=== PATIENT | female | born 1995 ===

== ENCOUNTER 2017-12-02 14:31 | Emergency (ER) | payer OTHER ==
[2017-12-02 14:31] VITALS: BMI 21.1
[2017-12-02 14:38] VITALS: TEMP 98.8
--- NOTE | 2017-12-02 16:01 | RAD ---
HISTORY: CP COMPARISON: No prior. TECHNIQUE: Chest PA and lateral FINDINGS: LUNGS: No active pulmonary disease. PLEURA: No significant pleural effusion identified. No pneumothorax apparent. CARDIOVASCULAR: Normal. OSSEOUS STRUCTURES: No significant abnormalities. VISUALIZED UPPER ABDOMEN: Normal. OTHER FINDINGS: None. IMPRESSION: No active disease.
--- NOTE | 2017-12-02 16:34 | ED PDOC ---
HPI: Chest Pain Time Seen by Provider: 12/02/17 15:15 Chief Complaint (Nursing): Chest Pain Chief Complaint (Provider): Chest Pain History Per: Patient History/Exam Limitations: no limitations Onset/Duration Of Symptoms: Days (x1 week) Current Symptoms Are (Timing): Still Present Quality: "Pain" Associated Symptoms: Nausea Additional Complaint(s): 22 year old female with past medical history of hypertension presents to the emergency department complaining of intermittent chest pain x1 week. Patient is also complaining of a left sided headache associated with lightheadedness that has also been going on for 1 week. Of note: Patient had thyroid surgery 1 year ago at [facility] Past Medical History Reviewed: Historical Data, Nursing Documentation, Vital Signs Vital Signs: Last Vital Signs Temp 98.8 F 12/02/17 14:35 Pulse 72 12/02/17 18:02 Resp 20 12/02/17 14:35 BP 96/60 L 12/02/17 14:35 Pulse Ox 98 12/02/17 18:02 - Medical History PMH: Graves' Disease (had sx 2016), HTN, Hyperthyroidism (Goiter), Pneumonia Denies: Chronic Kidney Disease - Surgical History Other surgeries: Thyroid surgery - Family History Family History: States: Hypertension - Social History Current smoker - smoking cessation education provided: No Ex-Smoker (has not smoked in the last 12 months): No Alcohol: Social Drugs: Denies - Immunization History Hx Tetanus Toxoid Vaccination: No Hx Influenza Vaccination: No Hx Pneumococcal Vaccination: No - Home Medications Home Medications: Ambulatory Orders Medication Instructions Recorded Calcium Carbonate [Calcium] 500 mg PO BID 09/18/17 Cholecalciferol (Vitamin D3) 10,000 unit PO TID 09/18/17 [Vitamin D3] Levothyroxine [Levoxyl] 0.125 mg PO DAILY 09/18/17 Ibuprofen [Motrin] 600 mg PO Q6H PRN #20 tab 12/02/17 - Allergies Allergies/Adverse Reactions: Allergies Allergy/AdvReac Type Severity Reaction Status Date / Time acetaminophen [From Percocet] Allergy Mild RASH Verified 12/02/17 14:38 oxycodone [From Percocet] AdvReac RASH Verified 12/02/17 14:38 Review of Systems ROS Statement: Except As Marked, All Systems Reviewed And Found Negative Cardiovascular: Positive for: Chest Pain, Light Headedness Neurological: Positive for: Headache (left sided) Physical Exam - Reviewed Nursing Documentation Reviewed: Yes Vital Signs Reviewed: Yes - Physical Exam Appears: Positive for: Non-toxic, No Acute Distress Head Exam: Positive for: ATRAUMATIC, NORMAL INSPECTION, NORMOCEPHALIC Skin: Positive for: Normal Color, Warm, Dry. Negative for: Rash Eye Exam: Positive for: Normal appearance, EOMI, PERRL ENT: Positive for: Normal ENT Inspection. Negative for: Nasal Congestion, Tonsillar Exudate Neck: Positive for: Normal, Painless ROM, Supple Cardiovascular/Chest: Positive for: Regular Rate, Rhythm, Chest Non Tender. Negative for: Tachycardia Respiratory: Positive for: Normal Breath Sounds. Negative for: Rales, Rhonchi, Wheezing, Respiratory Distress Gastrointestinal/Abdominal: Positive for: Normal Exam, Bowel Sounds, Soft. Negative for: Tenderness, Mass, Guarding Back: Positive for: Normal Inspection. Negative for: L CVA Tenderness, R CVA Tenderness Extremity: Positive for: Normal ROM. Negative for: Tenderness, Deformity, Swelling Neurologic/Psych: Positive for: Alert, technical account manager II-XII (all intact), Oriented, Cerebellar Tests (normal), Gait. Negative for: Motor/Sensory Deficits, Aphasia , Facial Droop - Laboratory Results Result Diagrams: 12/02/17 15:54 12/02/17 17:51 - ECG ECG Rhythm: Positive for: Normal ST Segment, Sinus Rhythm (normal) Rate: 72 O2 Sat by Pulse Oximetry: 98 (RA) Pulse Ox Interpretation: Normal Medical Decision Making Medical Decision Makin Initial Impression 22 year old female presenting with headache and atypical chest pain Initial Plan: * CT Head w/o Contrast * EKG * CMP * Magnesium * Phosphorous * Thyroid Stimulating Hormone * Troponin * Upreg * Udip * CBC * D-dimer * PTT * Prothrombin Time * CXR * Motrin Tab 600mg PO * Urinalysis * Reevaluation 1542 EKG performed normal sinus rhythm at 72bpm, No ST changes 1600 Chest Xray HISTORY: CP COMPARISON: No prior. TECHNIQUE: Chest PA and lateral FINDINGS: LUNGS: No active pulmonary disease. PLEURA: No significant pleural effusion identified. No pneumothorax apparent. CARDIOVASCULAR: Normal. OSSEOUS STRUCTURES: No significant abnormalities. VISUALIZED UPPER ABDOMEN: Normal. OTHER FINDINGS: None. IMPRESSION: No active disease. 1721 PROCEDURE: CT HEAD WITHOUT CONTRAST. HISTORY: HERRERA, dizziness COMPARISON: 09/26/2016 TECHNIQUE: Axial computed tomography images were obtained through the head/brain without intravenous contrast. Radiation dose: Total exam DLP = 924 mGy-cm. This CT exam was performed using one or more of the following dose reduction techniques: Automated exposure control, adjustment of the mA and/or kV according to patient size, and/or use of iterative reconstruction technique. FINDINGS: HEMORRHAGE: No intracranial hemorrhage. BRAIN: No mass effect or edema. No atrophy or chronic microvascular ischemic changes. VENTRICLES: Unremarkable. No hydrocephalus. CALVARIUM: Unremarkable. PARANASAL SINUSES: There is been interval resolution of previously noted sinusitis. Posterior nasopharynx is unremarkable. MASTOID AIR CELLS: Unremarkable as visualized. No inflammatory changes. OTHER FINDINGS: Retro-orbital regions are within normal limits. Pituitary gland is normal in size. No tonsillar ectopia is seen. IMPRESSION: Unremarkable CT scan of the brain without contrast. Resolution of previously noted sinusitis. No other interval change from prior study. 2151 Copy of labs and imaging given to patient. Patient is medically stable and will be discharged home. Documented by Ashley Jacinto acting as a scribe for Chasity Thompson MD. All medical record entries made by the Scribe were at my direction and personally dictated by me. I have reviewed the chart and agree that the record accurately reflects my personal performance of the history, physical exam, medical decision making, and the department course for this patient. I have also personally directed, reviewed, and agree with the discharge instructions and disposition. Disposition - Clinical Impression Clinical Impression: Atypical chest pain, Headache - Patient ED Disposition Is Patient to be Admitted: No Counseled Patient/Family Regarding: Studies Performed, Diagnosis - Disposition Referrals: [facility] [Outside] Disposition: Routine/Home Disposition Time: 21:52 Condition: IMPROVED Additional Instructions: FOLLOW-UP WITH YOUR PMD WITHIN 2 DAYS FOR REEVALUATION. Prescriptions: Ibuprofen [Motrin] 600 mg PO Q6H PRN #20 tab PRN Reason: Pain, Moderate (4-7) Instructions: Headache, Adult, Chest Pain Forms: [facility] (Portuguese) - POA Present On Arrival: None
[2017-12-02 17:02] LABS: BASO % 0.7 % (0.0-2.0); EOS # 0.2 K/uL (0.0-0.7); EOS % 3.4 % (0.0-4.0); HEMOGLOBIN 11.9 g/dL (12.0-16.0); LYMPH # 2.7 K/uL (1.0-4.3); LYMPH % 42.8 % (20.0-40.0); MEAN CELL VOLUME 85.7 fl (81.0-99.0); MEAN CORPUSCULAR HEMOGLOBIN 28.1 pg (27.0-31.0); MEAN CORPUSCULAR HGB CONC 32.8 g/dL (33.0-37.0); MEAN PLATELET VOLUME 9.3 fl (7.2-11.7); MONO # 0.3 K/uL (0.0-0.8); MONO % 4.7 % (0.0-10.0); NEUT # 3.1 K/uL (1.8-7.0); NEUT % 48.4 % (50.0-75.0); RBC 4.22 Mil/uL (3.80-5.20); RED CELL DISTRIBUTION WIDTH 13.9 % (11.5-14.5); WHITE BLOOD COUNT 6.4 K/uL (4.8-10.8)
[2017-12-02 17:03] LABS: SQUAMOUS EPITHIAL 2 /hpf (0-5); URINE AMORPHOUS SEDIMENT RARE /ul (<OCC); URINE BILIRUBIN NEGATIVE (NEGATIVE); URINE BLOOD NEGATIVE (NEGATIVE); URINE CLARITY SLIGHTY-CLOUDY (Clear); URINE COLOR YELLOW (YELLOW); URINE GLUCOSE (UA) NEG (Normal); URINE LEUKOCYTE ESTERASE NEG Leu/uL (Negative); URINE PROTEIN NEGATIVE (NEGATIVE); URINE UROBILINOGEN 0.2-1.0 mg/dL (0.2-1.0)
--- NOTE | 2017-12-02 17:23 | CT ---
PROCEDURE: CT HEAD WITHOUT CONTRAST. HISTORY: HERRERA, dizziness COMPARISON: 09/26/2016 TECHNIQUE: Axial computed tomography images were obtained through the head/brain without intravenous contrast. Radiation dose: Total exam DLP = 924 mGy-cm. This CT exam was performed using one or more of the following dose reduction techniques: Automated exposure control, adjustment of the mA and/or kV according to patient size, and/or use of iterative reconstruction technique. FINDINGS: HEMORRHAGE: No intracranial hemorrhage. BRAIN: No mass effect or edema. No atrophy or chronic microvascular ischemic changes. VENTRICLES: Unremarkable. No hydrocephalus. CALVARIUM: Unremarkable. PARANASAL SINUSES: There is been interval resolution of previously noted sinusitis. Posterior nasopharynx is unremarkable. MASTOID AIR CELLS: Unremarkable as visualized. No inflammatory changes. OTHER FINDINGS: Retro-orbital regions are within normal limits. Pituitary gland is normal in size. No tonsillar ectopia is seen. IMPRESSION: Unremarkable CT scan of the brain without contrast. Resolution of previously noted sinusitis. No other interval change from prior study.
[2017-12-02 18:11] LABS: ALBUMIN 4.1 g/dL (3.5-5.0); ALT/SGPT 31 U/L (9-52); AST/SGOT 30 U/L (14-36); BLOOD UREA NITROGEN 16 mg/dl (7-17); CALCIUM 8.1 mg/dL (8.4-10.2); GFR AFRICAN-AMERICAN > 60; GFR NON-AFRICAN AMERICAN > 60
[2017-12-02 18:15] LABS: INR 1.1 (0.9-1.2); PARTIAL THROMBOPLASTIN TIME 32.8 Seconds (25.6-37.1); PROTHROMBIN TIME 12.7 Seconds (9.8-13.1)
[2017-12-02] MEDS ORDERED: Sodium Chloride 0.9% 100 ML ONE (19:45)
[2017-12-02] MEDS ORDERED: Iodixanol 320 MG/ML 100 ML BOTTLE IV ONE (19:45)
[2017-12-02 20:09] LABS: T4 6.59 ug/dl (5.5-11.0)
[2017-12-02 20:23] LABS: T3 0.598 nmol/L (1.49-2.60)
--- NOTE | 2017-12-02 21:17 | CT ---
EXAM: CT Angiography Chest With Intravenous Contrast EXAM DATE/TIME: 12/02/2017 6:19 PM CLINICAL HISTORY: 22 years old, female; Pain; Other: Chest pain; Prior surgery; Surgery date: 6+ months; Surgery type: Thyroid SX 2017. HTN graves dz. Goiter. Pneumonia; Additional info: Cp TECHNIQUE: Axial computed tomographic angiography images of the chest with intravenous contrast using pulmonary embolism protocol. All CT scans at this facility use one or more dose reduction techniques, viz.: automated exposure control; ma/kV adjustment per patient size (including targeted exams where dose is matched to indication; i.e. head); or iterative reconstruction technique. MIP reconstructed images were created and reviewed. Coronal and sagittal reformatted images were created and reviewed. CONTRAST: 98 mL of VISIPAQUE administered intravenously. COMPARISON: Recent chest radiographs from 2017-12-02 15:47 FINDINGS: PULMONARY ARTERIES: Contrast opacification of the pulmonary arteries is adequate, and there are no filling defects seen to suggest pulmonary embolism. AORTA: Exam is nondiagnostic for the detection of aortic dissection because of suboptimal enhancement of the aorta. No evidence of thoracic aortic aneurysm. LUNGS: Areas of mosaic attenuation in the right lung base, which could represent focal air trapping from small airways disease, such as reactive airways disease. No evidence of significant focal consolidation/infiltrate in the lungs. No evidence of diffuse pulmonary vascular congestion. PLEURAL SPACE: No pneumothorax or pleural effusions seen. HEART: No evidence of significant pericardial effusion. THYROID: Thyroid gland is not visualized, and may be surgically absent. BONES/JOINTS: No acute bony abnormality identified. SOFT TISSUES: No acute abnormality of the visualized soft tissues seen. LYMPH NODES: No evidence of diffuse lymphadenopathy. IMPRESSION: - No evidence of pulmonary embolism or other significant acute abnormality in the chest. - See above for remaining findings.
[2017-12-02 22:01] VITALS: BP 94/56; PULSE 67; RESP 18; O2SAT 100
--- NOTE | 2017-12-03 07:30 | CARD ---
APPROVED REPORT EKG Measurement Heart [id number] <Conclusion> Normal sinus rhythm Normal ECG
== END 2017-12-02 22:12 | disposition home or self-care (01) ==
LOC: H.ER 14:31
DX: R07.9 Chest pain, unspecified (principal); R51 Headache; I10 Essential (primary) hypertension; Z87.891 Personal history of nicotine dependence; Z88.5 Allergy status to narcotic agent; E05.00 Thyrotoxicosis with diffuse goiter without thyrotoxic crisis or storm
CPT/HCPCS: 70450; 71046; 71275; 80053; 81003; 81025; 83735; 84100; 84436; 84443; 84480; 84484; 85025; 85378; 85610; 85730; 93005; 99284; Q9967